=== PATIENT | male | born 1990 | race Caucasian/White ===

== ENCOUNTER 2018-07-15 15:29 | Emergency (ER) | payer OTHER ==
[~2018-07-15] VITALS: Ht 188 cm; Wt 136.1 kg
[2018-07-15 15:34] VITALS: Ht 188 cm; Wt 136.1 kg
[2018-07-15 16:20] LABS: BASOPHIL % 0.8 % (0-2); PLATELET COUNT 285 x10^3mcL (130-400); RED CELL DISTRIBUTION WIDTH 11.8 % (11.5-14.5)
[2018-07-15 16:48] LABS: FREE T4 1.09 ng/dL (0.76-1.46); FREE THYROXINE INDEX 3.3 ug/dL (1.4-4.5); T4(THYROXINE) 8.9 ug/dL (4.7-13.3)
[2018-07-15 17:06] LABS: T3 TOTAL 1.24 ng/mL
[2018-07-15 17:17] LABS: CALCIUM 8.4 mg/dL (8.5-10.1); CARBON DIOXIDE 29.6 mmol/L (21-32); CHLORIDE SERUM 104 mmol/L (98-107); GFR1 > 60 mL/min; GLUCOSE SERUM 105 mg/dL (74-106); POTASSIUM SERUM 3.7 mmol/L (3.5-5.1); SODIUM SERUM 142 mmol/L (136-145)
[2018-07-15 17:21] LABS: ALBUMIN 4.1 g/dL (3.4-5.0); ALKALINE PHOSPHATASE 56 U/L (46-116); ALT/SGPT 116 U/L (16-63); AST/SGOT 39 U/L (15-37); BILIRUBIN TOTAL 1.15 mg/dL (0.20-1.00); CHOLESTEROL 147 mg/dL (<200); CHOLESTEROL/HDL RATIO 3.2; HDL CHOLESTEROL 46 mg/dL (40-60); TOTAL PROTEIN, SERUM 7.3 g/dL (6.4-8.2); TRIGLYCERIDES 74 mg/dL (<150)
[2018-07-15 17:21] LABS: AMPHETAMINE QUAL UR NONE DETECTED (See below)
[2018-07-15 20:00] VITALS: BP 151/87
== END 2018-07-15 20:00 | disposition home or self-care (01) ==
LOC: ED 15:29
PROVIDERS: Emergency Medicine
DX: R07.89 Other chest pain (principal); E66.9 Obesity, unspecified; Z68.39 Body mass index [BMI] 39.0-39.9, adult
CPT/HCPCS: 36415; 84439; J7030; Q0092